=== PATIENT | female | born 2000 | race Two or more races ===

== ENCOUNTER 2022-12-17 10:08 | Emergency (ER) | payer OTHER ==
[~2022-12-17] VITALS: Ht 175.3 cm; Wt 77.1 kg
[2022-12-17] MEDS ORDERED: LEVOFLOXACIN5 ML (10:22)
[2022-12-17] MEDS ORDERED: METRONIDAZOLE500 MG PO (12:21)
[2022-12-17] MEDS ORDERED: LEVOFLOXACIN500 MG PO (12:21)
== END 2022-12-17 12:49 | disposition home or self-care (01) ==
LOC: ER 10:08
DX: L05.01 Pilonidal cyst with abscess (principal)